=== PATIENT | female | born 1955 | race Caucasian/White ===

== ENCOUNTER 2019-07-13 10:09 | Outpatient (CLI) | payer OTHER, SELFPAY ==
--- NOTE | ~2019-07-13 | XR_ITS ---
EXAMINATION: XR chest 2V DATE: 07/13/2019 10:33 INDICATION: Chest pain, unspecified. TECHNIQUE: Frontal and lateral views of the chest were obtained. COMPARISON: Chest 2 views 12/19/2007 FINDINGS: There are nodules in right mid and upper lung zones and left mid lung zone measuring up to 1.5 cm on the right. No pleural effusion or pneumothorax. The heart size is normal. IMPRESSION: 1. Pulmonary nodules, which may be infection (including COVID-19) or malignancy. Consider follow-up i maging after resolution of acute symptoms. Reviewed, dictated and finalized at location A. IMPRESSION: 1. Pulmonary nodules, which may be infection (including COVID-19) or malignancy . Consider follow-up imaging after resolution of acute symptoms.
[2019-07-13 10:31] LABS: Basophils Percent Auto 0.3 % (0.2-1.2); Eosinophils Percent Auto 0.2 % (0-4.4); Hematocrit 41.2 % (37.0-47.0); Hemoglobin 13.4 g/dL (12.0-15.0); Immature Granulocyte Absolute 0.01 K/mm3 (0.00-0.031); Immature Granulocyte Percent A 0.2 % (0-0.5); Lymphocytes Absolute Auto 0.62 K/mm3 (0.9-3.2); Lymphocytes Percent Auto 10.6 % (18.3-44.2); Mean Corpuscular HGB Conc 32.5 g/dl (32-36); Mean Corpuscular Hemoglobin 30.6 pg (26-34); Mean Corpuscular Volume 94.1 fl (80-100); Mean Platelet Volume 10.4 fl (7.4-10.4); Monocytes Absolute Auto 0.6 K/mm3 (0.1-0.6); Monocytes Percent Auto 9.4 % (2.6-8.5); Neutrophils Absolute Auto 4.7 K/mm3 (1.3-6.7); Neutrophils Percent Auto 79.3 % (45.5-73.1); Platelet Count Result 126 k/mm3 (150-375); Red Blood Count 4.38 M/mm3 (4.2-5.4); Red Cell Distribution Width 13.1 % (11.5-14.5); White Blood Count 5.9 K/mm3 (4.5-10.0)
[2019-07-13 10:41] LABS: D Dimer 0.96 ug/mL (<0.48)
[2019-07-13 10:51] LABS: Alanine Aminotransferase 26 U/L (4-35); Albumin Level 4.6 g/dL (3.5-5.1); Alkaline Phosphatase 65 U/L (38-126); Aspartate Amino Transferase 39 U/L (14-36); Bilirubin,Total 0.5 mg/dL (0.2-1.3); Blood Urea Nitrogen 14 mg/dL (7-17); Calcium 9.8 mg/dL (8.4-10.2); Carbon Dioxide 32 mmol/L (22-30); Chloride 99 mmol/L (98-107); Estimated Glomerular Filt Rate > 60; Glucose 147 mg/dL (65-105); Potassium 4.4 mmol/L (3.4-5.0); Sodium 137 mmol/L (137-145)
== END 2019-07-13 10:10 | disposition home or self-care (01) ==
PROVIDERS: PCP Family Medicine; Visit Provider Family Medicine
DX: R06.02 Shortness of breath (principal); R07.9 Chest pain, unspecified; R53.83 Other fatigue; R91.8 Other nonspecific abnormal finding of lung field
CPT/HCPCS: 36415; 71046; 80053; 85025; 85055; 85380

== ENCOUNTER 2019-08-09 09:48 | Outpatient (CLI) | payer OTHER, SELFPAY ==
--- NOTE | ~2019-08-09 | XR_ITS ---
EXAMINATION: XR chest 2V 08/09/2019 10:16 INDICATION: Cough PROCEDURE: 2 view chest COMPARISON: Comparison to multiple prior studies sequentially, with oldest reviewed study dated 11/26. FINDINGS: The lungs are clear. The cardiomediastinal silhouette is within normal limits. There are no pleural effusions. There is no pneumothorax suspected. IMPRESSION: 1: NO ACUTE CARDIOPULMONARY DISEASE. Reviewed, dictated and finalized at location A.
== END 2019-08-09 09:49 | disposition home or self-care (01) ==
PROVIDERS: PCP Family Medicine; Visit Provider Family Medicine
DX: R05 Cough (principal)
CPT/HCPCS: 71046

== ENCOUNTER 2020-01-29 14:02 | Outpatient (CLI) | payer OTHER, SELFPAY ==
--- NOTE | ~2020-01-29 | DEXA_ITS ---
Bone Density Report Name: Azul Kuo Age: 64 Sex: Female Ethnicity: White Date of : 1955 Indication: osteopenia; Referring Provider: FABIENNE GARCIA Study: Bone densitometry was performed. Exam Date: January 29, 2020 Accession number: [id number] Bone Density: Region BMD T-score Z-score Classification AP Spine (L1-L4) 0.858 -1.7 -0.1 Osteopenia Femoral Neck (Left) 0.731 -1.1 0.3 Osteopenia Total Hip (Left) 0.816 -1.0 0.1 Normal Total Hip Bilateral Avg 0.822 -0.9 0.2 Normal Femoral Neck (Right) 0.774 -0.7 0.7 Normal Total Hip (Right) 0.827 -0.9 0.2 Normal World Health Organization criteria for BMD impression classify patients as: Normal (T-score at or above -1.0), Osteopenia (T-score between -1.0 and -2.5), or Osteoporosis (T-score at or below -2.5). 10-year Fracture Risk(1): Major Osteoporotic Fracture 7.2% Hip Fracture 0.5% Reported Risk Factors: [place] (), Neck BMD=0.731, BMI=22.0 (1) FRAX(R) Version 3.08. Fracture probability calculated for an untreated patient. Fracture probability may be lower if the patient has received treatment. Previous Exams: Region Exam Age BMD T-score BMD Change BMD Change Date g/cm2 vs Baseline vs Previous AP Spine(L1-L4) 01/29/2020 64 0.858 -1.7 -0.075(-8.0%)* -0.004(-0.5%) 12/21/2017 62 0.862 -1.7 -0.071(-7.6%)* -0.071(-7.6%)* 10/17/2014 59 0.933 -1.0 Total Hip(Left) 01/29/2020 64 0.816 -1.0 -0.065(-7.3%)* -0.011(-1.3%) 12/21/2017 62 0.827 -0.9 -0.054(-6.1%)* -0.054(-6.1%)* 10/17/2014 59 0.881 -0.5 Total Hip(Right) 01/29/2020 64 0.827 -0.9 -0.050(-5.7%)* 0.012(1.5%) 12/21/2017 62 0.816 -1.0 -0.062(-7.0%)* -0.062(-7.0%)* 10/17/2014 59 0.877 -0.5 *Denotes significance at 95% confidence level, LSC for AP Spine = 0.022 g/cm2, LSC for Total Hip = 0.027 g/cm2 Clinical Information Provided by Patient: Patient maximum height was 66 Menopause Age: 54 Does not regularly consume dairy products Onset of menses at age 16 Number of children 2 Impression: The patient has low bone mass, based on the Total Spine T-score. The patient has an estimated ten-year risk of hip fracture of 0.5% and an estimated ten-year risk of major fracture of 7.2%, based on the WHO FRAX algorithm. No significant bone loss was observed. Discussion: BONE DENSITY IS LOW AT ONE OR MORE SKELETAL SITES. This patient's lowest T-score is low at one or more skeletal si
--- NOTE | ~2020-01-29 | MM_ITS ---
EXAMINATION: MM screening [facility] BI w yamel HISTORY: Screening mammogram TECHNIQUE: Craniocaudal and mediolateral oblique 3-D tomosynthesis images were obtained and synthetic 2-D images were generated. CAD analysis was submitted and interpreted. COMPARISON: 01/17/2019, 12/21/2017, 12/08/2016 BREAST PARENCHYMAL COMPOSITION: There are scattered areas of fibroglandular density. FINDINGS: There is no evidence of suspicious mass, calcification, or architectural distortion to sugg est malignancy in either breast. There has been no suspicious interval change. IMPRESSION: 1. No mammographic evidence of malignancy. 2. Recommend routine screening mammography in one year. BI-RADS Category 1: Negative Reviewed, dictated and finalized at location A.
== END 2020-01-29 14:03 | disposition home or self-care (01) ==
PROVIDERS: PCP Family Medicine; Visit Provider Obstetrics & Gynecology
DX: Z12.31 Encounter for screening mammogram for malignant neoplasm of breast (principal); Z78.0 Asymptomatic menopausal state; M85.88 Other specified disorders of bone density and structure, other site; M85.852 Other specified disorders of bone density and structure, left thigh
CPT/HCPCS: 77063; 77067; 77080

== ENCOUNTER → 2020-05-12 06:51 | Outpatient (CLI) | payer OTHER, SELFPAY ==
[2020-05-12 18:27] LABS: SARS-CoV-2 RNA PCR Negative
== END ==
PROVIDERS: PCP Family Medicine; Visit Provider Family Medicine
DX: Z20.822 Contact with and (suspected) exposure to COVID-19 (principal)
CPT/HCPCS: C9803; U0003; U0005

== ENCOUNTER 2021-03-24 14:23 | Outpatient (CLI) | payer OTHER, SELFPAY ==
--- NOTE | ~2021-03-24 | MM_ITS ---
EXAMINATION: MM screening [facility] BI w yamel HISTORY: Screening mammogram TECHNIQUE: Craniocaudal and mediolateral oblique 3-D tomosynthesis images were obtained and synthetic 2-D images were generated. CAD analysis was submitted and interpreted. COMPARISON: 01/29/2020, 01/17/2019, 12/21/2017 BREAST PARENCHYMAL COMPOSITION: The breasts are heterogeneously dense, which may obscure small masses . FINDINGS: There is no evidence of suspicious mass, calcification, or architectural distortion to sugg est malignancy in either breast. There has been no suspicious interval change. IMPRESSION: 1. No mammographic evidence of malignancy. 2. Recommend routine screening mammography in one year. BI-RADS Category 1: Negative Reviewed, dictated and finalized at location A. ER OR ENGINE OPERATOR
== END 2021-03-24 14:24 | disposition home or self-care (01) ==
LOC: ANHIMG 14:25
PROVIDERS: PCP Family Medicine; Visit Provider Obstetrics & Gynecology
DX: Z12.31 Encounter for screening mammogram for malignant neoplasm of breast (principal)
CPT/HCPCS: 77063; 77067

== ENCOUNTER 2022-07-02 08:49 | Outpatient (CLI) | payer MEDICARE, SELFPAY ==
--- NOTE | ~2022-07-02 | DEXA_ITS ---
Bone Density Report Name: AD HA Age: 67 Sex: Female Ethnicity: White Date of : 1955 Indication: osteopenia; height loss; postmenopausal Referring Provider: FABIENNE GARCIA Study: Bone densitometry was performed. Exam Date: July 02, 2022 Accession number: [id number] Bone Density: Region BMD T-score Z-score Classification AP Spine(L1-L4) 0.843 -1.9 -0.1 Osteopenia Femoral Neck (Left) 0.717 -1.2 0.3 Osteopenia Total Hip (Left) 0.764 -1.5 -0.2 Osteopenia Femoral Neck (Right) 0.786 -0.6 0.9 Normal Total Hip (Right) 0.797 -1.2 0.0 Osteopenia Total Hip Mean 0.780 -1.4 -0.1 Osteopenia World Health Organization criteria for BMD impression classify patients as: Normal (T-score at or above -1.0), Osteopenia (T-score between -1.0 and -2.5), or Osteoporosis (T-score at or below -2.5). 10-year Fracture Risk(1): Major Osteoporotic Fracture 7.8% Hip Fracture 0.7% Reported Risk Factors: [place] (), Neck BMD=0.717, BMI=22.3 (1) FRAX(R) Version 3.08. Fracture probability calculated for an untreated patient. Fracture probability may be lower if the patient has received treatment. Previous Exams: Region Exam Age BMD T-score BMD Change BMD Change Date g/cm2 vs Baseline vs Previous AP Spine (L1-L4) 07/02/2022 67 0.843 -1.9 -0.090 (-9.6%) -0.015 (-1.8%) 01/29/2020 64 0.858 -1.7 -0.075 (-8.0%) -0.004 (-0.5%) 12/21/2017 62 0.862 -1.7 -0.071 (-7.6%) -0.071 (-7.6%) 10/17/2014 59 0.933 -1.0 Total Hip(Left) 07/02/2022 67 0.764 -1.5 -0.117 (-13.3% -0.053 (-6.4%) 01/29/2020 64 0.816 -1.0 -0.065 (-7.3%) -0.011 (-1.3%) 12/21/2017 62 0.827 -0.9 -0.054 (-6.1%) -0.054 (-6.1%) 10/17/2014 59 0.881 -0.5 Total Hip(Right) 07/02/2022 67 0.797 -1.2 -0.081 (-9.2%) -0.031 (-3.7%) 01/29/2020 64 0.827 -0.9 -0.050 (-5.7%) 0.012 (1.5%) 12/21/2017 62 0.816 -1.0 -0.062 (-7.0%) -0.062 (-7.0%) 10/17/2014 59 0.877 -0.5 *Denotes significance at 95% confidence level, LSC for AP Spine = 0.022 g/cm2, LSC for Total Hip = 0.027 g/cm2 Clinical Information Provided by Patient: Has used the following medications: Vitamin D, Calcium Patient maximum height was 67 Menopause Age: 54 Drinks caffeinated beverages Onset of menses at age 15 Number of children 2 Impression: The patient has low bone mass, based on the Total Spine T-score. The patient has an estimated ten-year risk o
--- NOTE | ~2022-07-02 | MM_ITS ---
EXAMINATION: MM screening [facility] w [facility] HISTORY: Screening TECHNIQUE: Craniocaudal and mediolateral oblique 3-D tomosynthesis images were obtained and synthetic 2-D images were generated. CAD analysis was submitted and interpreted. COMPARISON: Comparison to multiple prior studies sequentially, with oldest reviewed study dated 12/02. BREAST PARENCHYMAL COMPOSITION: The breasts are heterogeneously dense, which may obscure small masses . FINDINGS: There is no evidence of suspicious mass, calcification, or architectural distortion to sugg est malignancy in either breast. There has been no suspicious interval change. IMPRESSION: 1. No mammographic evidence of malignancy. 2. Recommend routine screening mammography in one year. BI-RADS Category 1: Negative Reviewed, dictated and finalized at location A.
== END 2022-07-02 08:50 | disposition home or self-care (01) ==
PROVIDERS: PCP Family Medicine; Visit Provider Obstetrics & Gynecology
DX: Z12.31 Encounter for screening mammogram for malignant neoplasm of breast (principal); M85.88 Other specified disorders of bone density and structure, other site; M85.852 Other specified disorders of bone density and structure, left thigh; M85.851 Other specified disorders of bone density and structure, right thigh
CPT/HCPCS: 77063; 77067; 77080

== ENCOUNTER 2023-07-09 07:10 | Outpatient (CLI) | payer MEDICARE, SELFPAY ==
--- NOTE | ~2023-07-09 | MM_ITS ---
EXAMINATION: MM screening [facility] BI w y[facility] HISTORY: Screening mammogram TECHNIQUE: Craniocaudal and mediolateral oblique 3-D tomosynthesis images were obtained and synthetic 2-D images were generated. CAD analysis was submitted and interpreted. COMPARISON: 07/02/2022, 03/24/2021 bilateral screening mammogram examinations BREAST PARENCHYMAL COMPOSITION: The breasts are heterogeneously dense, which may obscure small masses . FINDINGS: There is no evidence of suspicious mass, calcification, or architectural distortion to sugg est malignancy in either breast. There has been no suspicious interval change. IMPRESSION: 1. No mammographic evidence of malignancy. 2. Recommend routine screening mammography in one year. BI-RADS Category 1: Negative Reviewed, dictated and finalized at location B.
== END 2023-07-09 07:11 | disposition home or self-care (01) ==
PROVIDERS: PCP Family Medicine; Visit Provider Obstetrics & Gynecology
DX: Z12.31 Encounter for screening mammogram for malignant neoplasm of breast (principal)
CPT/HCPCS: 77063; 77067

== ENCOUNTER 2024-10-10 08:39 | Outpatient (CLI) | payer MEDICARE, SELFPAY ==
--- NOTE | ~2024-10-10 | MM_ITS ---
EXAMINATION: MM screening wes BI w yamel HISTORY: Screening TECHNIQUE: Craniocaudal and mediolateral oblique 3-D tomosynthesis images were obtained and synthetic 2-D images were generated. CAD analysis was submitted and interpreted. COMPARISON: Comparison to multiple prior studies sequentially, with oldest reviewed study dated 12/21. BREAST PARENCHYMAL COMPOSITION: Dense: The breasts are heterogeneously dense, which may obscure small masses FINDINGS: There is no evidence of suspicious mass, calcification, or architectural distortion to sugg est malignancy in either breast. There has been no suspicious interval change. IMPRESSION: 1. No mammographic evidence of malignancy. 2. Recommend routine screening mammography in one year. BI-RADS Category 1: Negative Reviewed, dictated and finalized at location A.
--- NOTE | ~2024-10-10 | DEXA_ITS ---
Bone Density Report Name: AD HA Age: 69 Sex: Female Ethnicity: White Date of : 1955 Indication: osteopenia; height loss; Referring Provider: FABIENNE GARCIA Study: Bone densitometry was performed. Exam Date: October 10, 2024 Accession number: [id number] Bone Density: Region BMD T-score Z-score Classification AP Spine(L1-L4) 0.829 -2.0 -0.1 Osteopenia Femoral Neck (Left) 0.683 -1.5 0.2 Osteopenia Total Hip (Left) 0.848 -0.8 0.6 Normal Femoral Neck (Right) 0.737 -1.0 0.6 Normal Total Hip (Right) 0.839 -0.8 0.5 Normal Total Hip Mean 0.844 -0.8 0.6 Normal World Health Organization criteria for BMD impression classify patients as: Normal (T-score at or above -1.0), Osteopenia (T-score between -1.0 and -2.5), or Osteoporosis (T-score at or below -2.5). 10-year Fracture Risk(1): Major Osteoporotic Fracture 8.5% Hip Fracture 1.1% Reported Risk Factors: [place] (), Neck BMD=0.683, BMI=21.1 (1) FRAX(R) Version 3.08. Fracture probability calculated for an untreated patient. Fracture probability may be lower if the patient has received treatment. Previous Exams: Region Exam Age BMD T-score BMD Change BMD Change Date g/cm2 vs Baseline vs Previous AP Spine (L1-L4) 10/10/2024 69 0.829 -2.0 -0.104 (-11.1% -0.014 (-1.6%) 07/02/2022 67 0.843 -1.9 -0.090 (-9.6%) -0.015 (-1.8%) 01/29/2020 64 0.858 -1.7 -0.075 (-8.0%) -0.004 (-0.5%) 12/21/2017 62 0.862 -1.7 -0.071 (-7.6%) -0.071 (-7.6%) 10/17/2014 59 0.933 -1.0 Total Hip(Left) 10/10/2024 69 0.848 -0.8 -0.032 (-3.7%) 0.085 (11.1%)* 07/02/2022 67 0.764 -1.5 -0.117 (-13.3% -0.053 (-6.4%) 01/29/2020 64 0.816 -1.0 -0.065 (-7.3%) -0.011 (-1.3%) 12/21/2017 62 0.827 -0.9 -0.054 (-6.1%) -0.054 (-6.1%) 10/17/2014 59 0.881 -0.5 Total Hip(Right) 10/10/2024 69 0.839 -0.8 -0.038 (-4.4%) 0.043 (5.4%)* 07/02/2022 67 0.797 -1.2 -0.081 (-9.2%) -0.031 (-3.7%) 01/29/2020 64 0.827 -0.9 -0.050 (-5.7%) 0.012 (1.5%) 12/21/2017 62 0.816 -1.0 -0.062 (-7.0%) -0.062 (-7.0%) 10/17/2014 59 0.877 -0.5 *Denotes significance at 95% confidence level, LSC for AP Spine = 0.022 g/cm2, LSC for Total Hip = 0.027 g/cm2 Clinical Information Provided by Patient: Has used the following medications: Vitamin D, Calcium Patient maximum height was 67 Menopause Age: 54 Drinks caffeinated beverages Onset of menses at age 15 Number of children 2 Impression: The patient has low bone mass, based on the Total Spine T-score. The patient has an estimated ten-year risk of hip fracture of 1.1% and an estimated ten-year risk of major fracture of 8.5%, based on the WHO FRAX algorithm. No significant bone loss was observed. Discussion: BONE DENSITY IS LOW AT ONE OR MORE SKELETAL SITES. This patient's lowest T-score is low at one or more skeletal sites. It meets the World Health Organization's (WHO) criteria for ?low bone mass? (T-score between -1.0 and -2.5). The patient's 10-year risk of fracture as calculated by FRAX is less than the threshold where pharmacological therapy is recommended by the National Osteoporosis Foundation (NOF). However, all treatment decisions require clinical judgment and consideration of individual patient factors, including patient preferences, comorbidities, previous drug use, risk factors not captured in the FRAX model (e.g., frailty, falls, vitamin D deficiency, increased bone turnover, interval significant decline in bone density) and possible under or overestimation of fracture risk by FRAX. The patient should follow a healthful lifestyle (good nutrition with adequate calcium and vitamin D, and appropriate weight-bearing exercise). Follow-Up: Consider repeating this study in 2 to 3 years to reassess this patient's status, or sooner if there is some new clinical indication. Reported by: DIRK on 10/10/2024 9:18:00 AM. Reviewed, dictated and finalized at location A.
--- OUTSIDE RECORDS SUMMARY | 2024-10-10 08:45 | XMS_ITS | Clinical Summary ---
Author Organization [facility] [employer] Address [address] [place] [place] [address] Care Team Providers Care Data Entry Machine Operator Name Role Phone Nikki Daniels MD Primary Care Provider [phone] Laurence Wilkins RN Unavailable Unavailable Source Comments [facility],non-owned Affiliates and Associated Physician Practices is amultiple site organization consisting of ambulatory clinics and hospital sitesin [place] and [place]. This disclosure is being madepursuant to the Care Everywhere program and may not contain all information available regarding this patient. Last updated 17.[facility] [employer] Allergies Active Allergy Reactions Criticality Noted Date Comments Adhesive Sensitivity Rash Medium 04/20/2018 Band-aids Uzufbczq-Vnhoqmhvfk-Pmrnglofe Rash Medium 2017 Medications * Be aware that medications may not be up to date on this document. Alwaysverify current medications with the patient. Probiotic Product (PROBIOTIC DAILY PO) Take 1 capsule by mouth once daily Active Calcium Citrate-Vitamin D (CALCIUM + D PO) Take 2 tablets by mouth once daily 400 mg calcium citrate and 500 units of vitamin D3 Active Multiple Vitamin (MULTI VITAMIN PO) Take by mouth once daily Active [place]-3 Fatty Acids (EQL OMEGA 3 FISH OIL) 1400 MG Take 1 capsule by mouth once daily Active vitamin C (ASCORBIC ACID) 1000 MG tablet 0 Active Specialty Vitamins Products (ICAPS LUTEIN & ZEAXANTHIN PO) 0 Active valACYclovir (VALTREX) 1 GM tablet TAKE 2 TABLETS BY MOUTH EVERY 12 HOURS FOR 1 DAY 1 Active biotin 2.5 MG tablets Take 1 (one) tablet by mouth once daily Active sodium sulfate-mag sulfate-KCl (Sutab) 0488-689-437 MG tablet Take as directed in package insert for upcoming colonoscopy 24 tablet 3 Active Additional Information Patient not taking.Reported on 12/20/2022 fluconazole (Diflucan) 150 MG tabletIndicatio ns:Candidiasis of skin and nails Take 300mg (2 tablets) once weekly for 6-12 weeks 24 tablet 4 Active ciclopirox (Penlac) 8 % solutionIndicat ions:Candidiasi s of skin and nails Apply to affected nails daily. 30 days supply. 6.6 mL 2 5 Active Active Problems Problem Noted Date Diagnosed Date Hepatic adenoma 11/02/2017 Liver lesion 04/22/2017 Encounters Date Type Department Care Team Description 07/26/2024 10:42 AM CDT Anesthesia Event [facility] [address] [place] [address] Tomas Smith MD 07/26/2024 9:55 AM CDT - 07/26/2024 11:00 AM CDT Surgery [facility] [address] [place] [address] Maria Teresa Garcia MD ESOPHAGOGASTRODUODENOSCOPY (EGD) /ESOPHAGOSCOPY WITH ULTRASOUND (EUS) 07/26/2024 8:59 AM CDT - 07/26/2024 12:20 PM CDT Hospital Encounter [facility] [address] [place] [address] Maria Teresa Garcia MD Surgery General Discharge Disposition: Home or Self Care 07/26/2024 Travel 07/18/2024 Telephone [facility] [address] [place] [address] Monica Ramey Procedure (Procedure Confirmation) from Last 3 Months Immunizations Immunization Administration Dates Next Due INFLUENZA VACCINE 01/17/2021,01/31/2018,02/03/20 17 ZOSTER HISTORIC VACCINE 12/01/2017 Family History Medical History Relation Name Comments Cancer - Pancreatic Brother Cancer - Skin, Non Melanoma Father None Known Maternal Aunt None Known Maternal Grandfather None Known Maternal Grandmother None Known Maternal Uncle Cancer - Colon Mother None Known Other None Known Paternal Aunt None Known Paternal Grandfather None Known Paternal Grandmother None Known Paternal Uncle Cancer - Pancreatic Sister Asthma Neg Hx CVA Neg Hx Cancer - Breast Neg Hx Cancer - Other Neg Hx Cancer - Skin, Melanoma Neg Hx Eczema Neg Hx Hemophilia Neg Hx Psoriasis Neg Hx Relation Name Status Comments Brother Father Maternal Aunt Maternal Grandfather Maternal Grandmother Maternal Uncle Mother Other Paternal Aunt Paternal Grandfather Paternal Grandmother Paternal Uncle Sister Social History Tobacco Use Types Packs/Day Years Used Date Smoking Tobacco: Never Smokeless Tobacco: Never Alcohol Use Standard Drinks/Week Comments Not Currently 1 (1 standard drink = 0.6 oz pur e alcohol) 2 times montly Comments No Sex and Gender Information Value Date Recorded Sex Assigned at Not on file Legal Sex Female 9:30 AM CDT Gender Identity Female 07/26/2017 9:32 AM CDT Sexual Orientation Not on file Last Filed Vital Signs Vital Sign Reading Time Taken Comments Blood Pressure 106/59 07/26/2024 12:01 PM CDT Pulse 56 07/26/2024 12:01 PM CDT Temperature 35.8 C (96.5 F) 07/26/2024 11:30 AM CDT Respiratory Rate 14 07/26/2024 12:0 1 PM CDT Oxygen Saturation 100% 07/26/2024 12: 01 PM CDT Inhaled Oxygen Concentration - - Weight 59.8 kg (131 lb 12.8 oz) 09/03/2022 9:01 AM CDT Height 170.2 cm (5' 7) 09/03/2022 9:01 AM CDT Body Mass Index 20.64 09/03/2022 9:01 AM CDT Plan of Treatment Upcoming Encounters Date Type Department Care Team (Late st Contact Info) Description 12/27/2024 10:40 AM CDT Office Visit [facility] - Dermatology [address] [place] [address], [place] [address] Feliciano Painting MD [address] [place] [address] [address] [place] [address] Health Maintenance Due Date Last Done Comments BONE DENSITY TESTING 1955 COLOGUARD (AGES 45-75) - COLON CA SCREENING 1955 CT COLONOGRAPHY - COLON CA SCREENING 1955 FIT - COLON CA SCREENING 1955 FLEX SIG - COLON CA SCREENING 1955 DTAP/TDAP/TD VACCINES (1 - Tdap) 1976 PNEUMOCOCCAL VACCINE 50+ (1 of 1 - PCV) 2007 ZOSTER VACCINE (1 of 2) 2007 12/01/2017 MAMMOGRAM 12/03/2019 12/02/2017 (Done Outside Per Patient) LIPID TESTING 11/01/2022 11/01/2017 (Done Outside Per Patient) COVID-19 VACCINE ( - 2023- season) 2023 DEPRESSION SCREENING 04/04/2024 MEDICARE AWV CALENDAR YEAR 2024 INFLUENZA VACCINE (#1) 2024 , 01/31/2018, 02/02/2017, Additional history exists Respiratory Syncytial Virus (RSV) Vaccine Pt: or over 60 yrs (1 - 1-dose 75+ series) 2032 COLON MONITORING 09/03/2032 09/03/2022, 05/2022, 05/15/2019, Additional history exists COLONOSCOPY - COLON CA SCREENING 09/03/2032 09/03/2022, 09/03/2022, 05/15/2019, Additional history exists Colorectal Cancer Screening 09/03/2032 HEPATITIS C SCREENING Completed 04/22/2017 HEPATITIS B VACCINE Aged Out No longe r eligible based on patient's age to complete this topic HIB VACCINE Aged Out No longer eligi ble based on patient's age to complete this topic HPV VACCINE Aged Out No longer eligi ble based on patient's age to complete this topic MENINGOCOCCAL (Group B) VACCINE SHARED DECISION-MAKING Aged Out No longer eligible based on patient's age to complete this topic MENINGOCOCCAL GROUPS A/C/Y/W VACCINE Aged Out No longer eligible based on patient's age to complete this topic Goals Goal Patient Goal Type Associated Problems Recent Progress Patient-Stated? Author Safety General On track( 020 8:08 AM MANAGER IN TRAINING) Cassidy Bell, RN Note: Expected end date: Ongoing Interventions: Your nurse will assess your risk for falls/injury each visit Use appropriate and safe transfer methods Medication Management General On track( 020 8:08 AM MANAGER IN TRAINING) Cassidy Bell, EVON Note: Expected end date: Ongoing Interventions: Take all medications as prescribed Let your doctor know right away about any changes in your medications Procedures Procedure Name Priority Date/Time Associated Diagnosis Comments AR ENDOSCOPIC ULTRASOUND EXAM 07/26/2024 10:35 AM CDT Other specified diseases of biliary tract ENDOSCOPIC ULTRASONOGRAPHY, GI Routine 07/26/2024 10:34 AM CDT ENDOSCOPY, COLON, DIAGNOSTIC Routine 09/03/2022 10:33 AM CDT HEPATITIS C ANTIBODY Routine 04/22/2017 4:10 PM MANAGER IN TRAINING from Last 3 Months or Most Recently Relevant to Health Maintenance Results * ENDOSCOPIC ULTRASONOGRAPHY, GI (07/26/2024 10:34 AM CDT) Report Endoscopy POC Endoscopy Department Report _ Patient Name: Azul Ha Procedure Date: 07/26/2024 10:34 AM Date of : 1955 Classification: Outpatient Gender: Female Ethnicity: Not or Race: White _ Providers: Maria Teresa Garcia MD, Yovani Napoles MD (Fellow) Referring MD: Procedure: Upper EUS Indications: Screening for pancreatic neoplasm given relatives with pancreatic cancer. Medications: Monitored Anesthesia Care Patient Profile: This is a 69 year old female. Description of Procedure: After obtaining informed consent, the endoscope was passed under direct vision. Throughout the procedure, the patient's blood pressure, pulse, and oxygen saturations were monitored continuously. The [id number] was introduced through the mouth, and advanced to the third part of duodenum. The [id number] was introduced through the mouth, and advanced to the second part of duodenum. The upper EUS was accomplished without difficulty. The patient tolerated the procedure well. Findings: ENDOSONOGRAPHIC FINDING: : There was no sign of significant endosonographic abnormality in the entire pancreas. The pancreatic duct measured up to 2.5 mm in diameter. The pancreas was well visualized, no masses, no cysts. Thorough inspection was performed via linear and radial scopes. There was no sign of significant endosonographic abnormality in the visualized portion of the liver. There was no sign of significant endosonographic abnormality in the common bile duct. The maximum diameter of the duct was 4.5 mm. An unremarkable gallbladder was identified. An anechoic lesion suggestive of a cyst was identified in the right kidney. The cyst measured 32.3 mm in maximal cross-sectional diameter. ENDOSCOPIC FINDING: : The examined esophagus was endoscopically normal. The entire examined stomach was endoscopically normal. The examined duodenum was endoscopically normal. Estimated Blood Loss: Estimated blood loss: none. Complications: No immediate complications. Impression: - There was no sign of significant pathology in the entire pancreas. - There was no evidence of significant pathology in the visualized portion of the liver. - There was no sign of significant pathology in the common bile duct. - Normal endoscopic examination - A small right kidney cyst was seen. - No specimens collected. Recommendation: - Patient has a contact number available for emergencies. The signs and symptoms of potential delayed complications were discussed with the patient. Return to normal activities tomorrow. Written discharge instructions were provided to the patient. - Resume previous diet. - Repeat the upper endoscopic ultrasound in 2 years for surveillance. - Perform magnetic resonance imaging (MRI) with gadolinium in 1 year. Attending Participation: I was present and participated during the entire procedure, including non-palm portions. Procedure Code(s): --- Professional --- 48615, Esophagogastroduod enoscopy, flexible, transoral; with endoscopic ultrasound examination limited to the esophagus, stomach or duodenum, and adjacent structures Diagnosis Code(s): --- Professional --- N28.89, Other specified disorders of kidney and ureter Z12.89, Encounter for screening for malignant neoplasm of other sites CPT copyright 2021 [employer]. All rights reserved. The codes documented in this report are preliminary and upon health/safety job titles review may be revised to meet current compliance requirements. Maria Teresa Garcia MD 07/26/2024 12:15:03 PM This report has been signed electronically. Note Initiated On: 07/26/2024 10:34 AM Number of Addenda: [address] [employer] 07/26/2024 10:3 4 AM CDT Maria Teresa Garcia MD GI PROCEDURE ORDERABLES Edited R esult - Final [facility] * ENDOSCOPY, COLON, DIAGNOSTIC (09/03/2022 10:33 AM CDT) Report Endoscopy POC Endoscopy Department Report _ Patient Name: Azul Ha Procedure Date: 09/03/2022 10:33 AM Date of : 1955 Classification: Outpatient Gender: Female Ethnicity: Not or Race: White _ Providers: Maria Teresa Garcia MD, Tony Krause (Fellow) Referring MD: Procedure: Colonoscopy Indications: High risk colon cancer surveillance: Personal history of colonic polyps, Screening patient at increased risk: Family history of 1st-degree relative with colorectal cancer at age 60 years (or older) Medications: Monitored Anesthesia Care Comorbidities Family hx of Colon Cancer Patient Profile: This is a 67 year old female. Description of Procedure: After I obtained informed consent, the scope was passed under direct vision. Throughout the procedure, the patient's blood pressure, pulse, and oxygen saturations were monitored continuously. The Colonoscope was introduced through the anus and advanced to the cecum, identified by appendiceal orifice and ileocecal valve. The colonoscopy was performed without difficulty. The patient tolerated the procedure well. Scope insertion time was 11 minutes. Scope withdrawal time was 37 minutes. Findings: The perianal and digital rectal examinations were normal. A 10 mm x 4 mm polyp was found in the proximal ascending colon. The polyp was flat and Winter classification IIa. Preparations were made for mucosal resection. Eleview with epinephrine was injected with adequate lift of the lesion from the muscularis propria. Snare mucosal resection with snare retrieval was performed. Two pieces were resected in total. Resection and retrieval were complete. Resected tissue margins were examined and clear of polyp tissue. There was no bleeding at the end of the procedure. The exam was otherwise without abnormality. Estimated Blood Loss: Estimated blood loss: none. Complications: No immediate complications. Impression: - One 10 mm polyp in the proximal ascending colon most likely SSL, removed with cold mucosal resection. Resected and retrieved. - The examination was otherwise normal. Recommendation: - Patient has a contact number available for emergencies. The signs and symptoms of potential delayed complications were discussed with the patient. Return to normal activities tomorrow. Written discharge instructions were provided to the patient. - Repeat colonoscopy in 3 years for surveillance. Attending Participation: I was present and participated during the entire procedure, including non-palm portions. Procedure Code(s): --- Professional --- 02369, Colonoscopy, flexible; with endoscopic mucosal resection Diagnosis Code(s): --- Professional --- Z86.010, Personal history of colonic polyps Z80.0, Family history of malignant neoplasm of digestive organs D12.2, Benign neoplasm of ascending colon CPT copyright 2021 [employer]. All rights reserved. The codes documented in this report are preliminary and upon health/safety job titles review may be revised to meet current compliance requirements. Maria Teresa Garcia MD, 09/03/2022 11:55:39 AM This report has been signed electronically. Note Initiated On: 09/03/2022 10:33 AM Number of Addenda: [address] 09/03/2022 10:3 3 AM CDT Maria Teresa Garcia MD GI PROCEDURE ORDERABLES Edited R esult - Final Performing Organization Address [facility]/State/ZIP Co de Phone Number [facility] * HEPATITIS C ANTIBODY (04/22/2017 4:10 PM MANAGER IN TRAINING) Hepatitis C Antibody Non-react [facility] Comment: Hepatitis C Antibody screen indicates no serologic evidence of past or current infection with Hepatitis C Virus. Patients with unexplained liver disease who are immunocompromised or suspected of having acute Hepatitis C infection may benefit from Nucleic Acid Test (TAWANDA) for Hepatitis C Viral RNA to confirm Hepatitis C status. Blood specimen (specimen) BLOOD SPECIMEN / Unknown 04/22/2017 4:10 PM MANAGER IN TRAINING 04/22/2017 4:33 PM MANAGER IN TRAINING Sukh Kincaid MD LAB - CHEMISTRY ORDERABLES Fin al Result [facility] [address] [place] [address], [facility] [phone] from Last 3 Months or Most Recently Relevant to Health Maintenance Insurance [employer] MED[employer]ARE [employer] Care Teams Data Entry Machine Operator Relationship Specialty Start Date End Date Nikki Daniels MD [address] [place] [address] PCP - General Family Medicine 10/14/16 Laurence Wilkins, RN Registered Nurse Hepatology 11/02/17
--- OUTSIDE RECORDS SUMMARY | 2024-10-10 08:45 | XMS_ITS | Encounter Summary ---
Author Organization [facility] Address [address] [place] [address] Care Team Providers Care Bioinformatics Programmer Name Role Phone Nikki Daniels MD Primary Care Provider [phone] Laurence Wilkins RN Unavailable Unavailable Encounter Details Date Type Department Care Team (Late st Contact Info) Description 03/12/2020 Lab Requisition [facility] [address] [facility], [place] [address] Ken Diallo MD [address] [place], [place] [id number] Social History Tobacco Use Types Packs/Day Years Used Date Smoking Tobacco: Never Smokeless Tobacco: Never Alcohol Use Standard Drinks/Week Comments Yes 1 (1 standard drink = 0.6 oz pur e alcohol) 2 times montly Comments No Sex and Gender Information Value Date Recorded Sex Assigned at Not on file Legal Sex Female 9:30 AM CDT Gender Identity Female 07/26/2017 9:32 AM CDT Sexual Orientation Not on file documented as of this encounter Functional Status * Is person deaf or have serious hearing difficulty? Answer Date of Assessment Author No 07/26/2017 11:23 AM ROBERTOT Catrina Mcghee RN * Is person blind or have serious difficulty seeing? Answer Date of Assessment Author No 07/26/2017 11:23 AM Catrina Ferraro RN * Does person have serious difficulty walking/climbing stairs? Answer Date of Assessment Author No 07/26/2017 11:23 AM CDT Catrina Mcghee RN * Does person have difficulty dressing/bathing? Answer Date of Assessment Author No 07/26/2017 11:23 AM Catrina Ferraro RN * Does person have difficulty doing errands alone? Answer Date of Assessment Author No 07/26/2017 11:23 AM Catrina Ferraro RN documented as of this encounter Mental Status * Does person have difficulty concentrating/remembering/making decisions? Answer Entry Date Author No 07/26/2017 11:23 AM Catrina Ferraro RN documented in this encounter Plan of Treatment Upcoming Encounters Date Type Department Care Team (Late st Contact Info) Description 12/27/2024 10:40 AM CDT Office Visit [facility] - Dermatology [address] [place] [address], [place] [address] Feliciano Painting MD [address] [place] [address] [address] DEPT [place] [address] documented as of this encounter Goals Goal Patient Goal Type Associated Problems Recent Progress Patient-Stated? Author Safety General On track( 020 8:08 AM BIOMATHEMATICIAN) No Cassidy Sanchez RN Note: Expected end date: Ongoing Interventions: Your nurse will assess your risk for falls/injury each visit Use appropriate and safe transfer methods Medication Management General On track( 8:08 AM BIOMATHEMATICIAN) No Cassidy Sanchez RN Note: Expected end date: Ongoing Interventions: Take all medications as prescribed Let your doctor know right away about any changes in your medications documented as of this encounter Procedures Procedure Name Priority Date/Time Associated Diagnosis Comments DERMATOPATHOLOGY Routine 03/11/2020 12:0 0 AM BIOMATHEMATICIAN documented in this encounter Results * DERMATOPATHOLOGY (03/11/2020 12:00 AM BIOMATHEMATICIAN) Case Report Dermatopathology Report Case: [id number] Authorizing Provider: Ken Diallo MD Collected: 03/11/2020 12:00 AM Ordering Location: [facility] Lab Received: 03/12/2020 12:29 PM Pathologist: Renato Mcguire MD Specimens: A) - Skin, right lower pretibia anteromedial B) - Skin, left mid ala rim 0 4:06 PM [facility] DERMAT[facility]ATH[facility]Y [facility]ORATORY Final Diagnosis Specimen A. 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 B: R/O BCC, SCC. 0 4:06 PM [facility] DERMATOPATH[facility]Y [facility]OR[facility] Gross Description Specimen A: Received is one formalin filled container labeled with the patients name and designated right lower pretibia anteromedial. The specimen consists of a shave removal measuring [id number]. Jar 0. Specimen B: Received is one formalin filled container labeled with the patient's name and designated left mid ala rim. The specimen consists of a shave biopsy measuring [id number]. Jar 0. 0 4:06 PM [facility] DERMATOPATH[facility]Y [facility]ORATORY Microscopic Description Specimen A. SKIN, right lower pretibia anteromedial: The epidermis shows parakeratosis, full thickness disorderly maturation of keratinocytes, mitoses at different levels, and dyskeratotic cells. This lesion is not present at the sampled margin of the specimen. Specimen B. SKIN, left mid ala rim: This dome-shaped lesion contains dilated blood vessels, coarse collagen bundles, and granular foamy cells (CD68+ and MART-1/Melan A -). 0 4:06 PM [facility] DERMATOPATHOLOGY LABORATORY Disclaimer An external and internal positive and negative controls are appropriate for the histochemical, immunohistochemical and immunofluorescence stain(s) in this case (if any), except where stated explicitly. The performance characteristics of the stain(s) cited in this report were developed and its performance characteristic determined by the Dermatopathology Laboratory at [facility], directed by Dr. Rocio Mcguire. These tests need not be, and therefore are not, approved by the [place] Food and Drug Administration. The tests are used for clinical purposes. Billing Codes Specimen Charges Stain Charges 41220 57846 1 1 [id number] [id number] 1 1 0 4:06 PM BIOMATHEMATICIAN DERMATOPATHOLOGY LABORATORY Embedded Images 0 4:06 PM BIOMATHEMATICIAN DERMATOPATHOLOGY LABORATORY Pathology/Cytology TISSUE SPECIMEN FROM SKIN / Unknown 03/11/2020 03/12/2020 12:29 PM BIOMATHEMATICIAN Miscellaneous samples (specimen) TISSUE SPECIMEN FROM SKIN / Unknown 03/11/2020 03/12/2020 12:30 PM BIOMATHEMATICIAN Ken Diallo MD LAB - PATHOLOGY/CYTOLOGY ORD ERABLES Final Result DERMATOPATHOLOGY LABORATORY [facility] - Department of Dermatology [facility] [address] [place] [address], [address] [phone] documented in this encounter Visit Diagnoses Not on filedocumented in this encounter Care Teams Bioinformatics Programmer Relationship Specialty Start Date End Date Nikki Daniels MD [address] [place] [address] PCP - General Family Medicine 10/14/16 Laurence Wilkins, EVON Registered Nurse Hepatology 11/02/17 documented as of this encounter
--- OUTSIDE RECORDS SUMMARY | 2024-10-10 08:45 | XMS_ITS | Continuity of Care Document ---
Author Organization [facility] Address [address] [address] [place] [address] Phone Care Team Providers Care Tube Wrapper Name Role Phone [employer] Unavailable Unavail able Procedures Procedure Date Cntct Lens Hydrophilic Toric Or Prism Ba llast Sales Tax Cntct Lens Hydrophilic Toric Or Prism Ba llast Tax - Medical Contact Lens Check Contact Lens Check Contact Lens Check Contact Lens Check Eye Exam & Treatment Refraction No Charge Contact Lens Check Eye Exam & Treatment Refraction No Charge Contact Lens Check No Charge Contact Lens Check Eye Exam & Treatment Refraction Advance Directives Directive Yes / No Effective Date File Name No Information Encounters Encounter Description Practice Location Reason(s) For Visit Diagnoses Date Provider Providers Copied on Encounter [facility], [address] [place] [address] [address], [place], [place], [id number], [place] tel:[phone] [facility] No Information 0 0 [facility] . [address] [facility] [facility] [address], [address], [place], [place], [id number], [place]. tel:[phone] [facility], [address] [place] [address] [address], [place], [place], [id number], [place] tel:[phone] [facility] No Information May-2 0-201 0 [facility] [address], [place], [place], [facility], [place]. tel:[phone] [facility], [address], [place], [place], [id number], [place] tel:[phone] [facility] No Information May-0 6-201 0 [facility]. [address] , [address], [place], [place], [facility], [place]. tel:[phone] [facility], [address] [place] [address] [address], [place], [place], [id number], [place] tel:[phone] [facility] No Information Apr-3 0-201 0 [facility] [address] , [address], [place], [place], [facility], [place]. tel:[phone] [facility], [address] [place] [address] [address], [place], [place], [id number], [place] tel:[phone] [facility] No Information Apr-2 3-201 0 [facility]. [address], [place], [facility], [place]. tel:[phone] [facility], [address] [place] [address] [address], [place], [place], [id number], [place] tel:[phone] [facility] No Information Apr-0 8-201 0 [facility] [address] , [address], [place], [facility], [place]. tel:[phone] [facility], [address] [place] [address] [address], [place], [place], [id number], [place] tel:[phone] [facility] No Information Mar-2 5-201 0 [facility]. [address] , [address], [place], [facility], [place]. tel:[phone] [facility], [address], [place], [place], [address], [place] tel:[phone] [facility] No Information Dejuan-1 8-200 9 [facility] [address] , [address], [place], [facility], . tel:[phone] [facility], [address] [place] [address] [address], [place], [place], [id number], [place] tel:[phone] [facility] No Information Mar-1 9-200 9 [facility] [address], [place], [facility], . tel:[phone] [facility], [address], [place], [place], [id number], tel:[phone] [facility] No Information Mar-1 4-200 8 [facility]. [address] , [address], [place], [facility], . tel:[phone] [facility], [address] [place] [address] [address], [place], [place], [id number], tel:[phone] [facility] No Information Mar-0 7-200 8 [facility]. [address] , [address], [place], [facility], . tel:[phone] [facility], [address] [place] [address] [address], [place], [place], [id number], [place] tel:[phone] [facility] No Information Dec-2 0-200 7 [facility] [address], [place], [facility], . tel:[phone] Family History Family Member Type Diagnosis Age At Onset No Information Payers Payer name Insurance type Covered alliance party ID Authoriza tirosana(s) No Information Social History Type Description Quantity Date Captured Comments Sex Female Smoking Status No Information Chief Complaint And Reason For Visit No Information Reason For Referral Reason For Referral No Information History Of Present Illness Encounter Date Complaint History Of Prese nt Illness No Information Functional Status Date Functional Assessmen t No Information Instructions Date Instruction Additional Infor mation No Information Assessments Type Assessment Date No Information Patient Care Teams Name Effective Dates (start - stop) Status Members No Information
== END 2024-10-10 08:40 | disposition home or self-care (01) ==
LOC: ANHIMG 08:41
PROVIDERS: PCP Family Medicine; Visit Provider Obstetrics & Gynecology
DX: Z12.31 Encounter for screening mammogram for malignant neoplasm of breast (principal); Z78.0 Asymptomatic menopausal state
CPT/HCPCS: 77063; 77067; 77080